=== PATIENT | female | born 1990 | race Caucasian/White ===

== ENCOUNTER 2023-07-22 09:48 | Emergency (ER) | payer MEDICAID, SELFPAY ==
[2023-07-22 09:55] VITALS: BP 128/72; PULSE 93; RESP 18; TEMP 36.6; O2SAT 98; BMI 18.3
[2023-07-22 11:10] LABS: Basophils # 0.1 10^3/uL (0.0-0.1); Basophils % 0.4 %; Eosinophils # 0.1 10^3/uL (0.0-0.8); Eosinophils % 0.4 %; Lymphocytes # 1.1 10^3/uL (0.8-4.8); Lymphocytes % 7.8 %; Mean Corpuscular HGB Conc 33.3 g/dL (30-55); Mean Corpuscular Hemoglobin 31.9 pg (27-33); Mean Corpuscular Volume 95.7 fl (85-98); Mean Platelet Volume 10.5 fL (7.4-10.4); Monocytes # 0.9 10^3/uL (0.2-0.9); Monocytes % 6.7 %; Neutrophils # 11.28 10^3/uL (1.8-7.7); Neutrophils % 84.3 %; Nucleated Red Blood Cells % 0 %; Platelet Count 193 10^3/cmm (157-399); Red Blood Count 4.39 10^6/uL (3.85-5.65); Red Cell Distribution Width 11.9 % (12.1-15.1); White Blood Count 13.38 10^3/uL (3.29-11.43)
[2023-07-22 11:21] VITALS: RESP 19; O2SAT 98
[2023-07-22] MEDS: ondansetron 2 mg/ML SDV 2 mL 4 MG IVP (11:21)
[2023-07-22] MEDS: morphine 4 mg/mL SDV 1 mL IVP ×2 (11:21→12:04)
--- NOTE | 2023-07-22 11:24 | PC.NURSE ---
NO BLOOD CULTURES DRAWN PRIOR TO ADMINISTRATION OF ANTIBIOTICS PER DR. IZAGUIRRE VERBAL ORDERS.
[2023-07-22] MEDS: vancomycin 1,000 MG in sodium chloride 0.9% 250 ML 250 MG IV (11:25)
[2023-07-22 11:31] VITALS: BP 127/78; PULSE 88; RESP 17; O2SAT 100
--- NOTE | 2023-07-22 11:42 | XRR_ITS ---
PROCEDURE INFORMATION: Exam: XR Left Hand Exam date and time: 07/22/2023 11:49 AM Age: 33 years old Clinical indication: Injury or trauma; Other: Blister on hand from raking; Injury details: Raking last week and got a blister on her left palm she states that she started having swelling redness to the palm started on bactrim but states she has had increased swelling is had some slight drainage from the wound and increased pain she denies any fevers. TECHNIQUE: Imaging protocol: Radiologic exam of the left hand. Views: 3 or more views. COMPARISON: No relevant prior studies available. FINDINGS: Bones/joints: Assessment somewhat limited due to patient positioning. Osseous structures are intact. No fracture or malalignment. Visualized joint surfaces are preserved. Soft tissues: Unremarkable. XR/XR hand LT min 3V* [id number] IMPRESSION: Negative exam. No acute bony abnormalities.
--- NOTE | 2023-07-22 11:46 | W.ED.EXTPRO ---
HPI - Extremity Problem General: Chief complaint: Extremity Problem,Nontraumatic Stated complaint: infection in hand Time Seen by Provider: 07/22/23 10:57 Source: patient Mode of arrival: ambulatory Limitations: no limitations History of Present Illness: 33-year-old female he states that she was raking last week and got a blister on her left palm she states that she started having swelling redness to the palm started on Bactrim but states she has had increased swelling is had some slight drainage from the wound and increased pain she denies any fevers. Associated symptoms: Deny chest pain, fever(s) or rash Review of Systems Const: Denies: fever(s) or chills ENMT: Denies: throat pain or dental pain Card: Denies: chest pain Resp: Denies: dyspnea GI: Denies: abdominal pain, nausea, vomiting or diarrhea Musc: Reports: extremity pain; Denies: neck pain or back pain Skin/Breast: Denies: rash Neuro: Denies: headache(s) Physical Exam Const: COMMON NORMALS: no acute distress, patient oriented x3 and healthy appearing HENMT: COMMON NORMALS: normocephalic and atraumatic HEAD & SCALP: normocephalic and atraumatic Neck/C-Spine: COMMON NORMALS: full ROM and supple Chest: COMMONS NORMALS: normal inspection of the chest Resp: COMMON NORMALS: normal respiratory effort Cardio: COMMON NORMALS: regular rate, regular rhythm and No murmurs present (Cardio) RATE: regular rate RHYTHM: regular rhythm GI: COMMON NORMALS: Normal to inspection, nondistended, normoactive bowel sounds present, Soft to palpation, non-tender and no masses PALPATION: Yes Soft to palpation Extremity: COMMON NORMALS: full ROM NARRATIVE EXTREMITY EXAM: Abscess noted to palm of left hand with some slight swelling she has full range of motion of her digits no flexor tendon tenderness Neuro: COMMON NORMALS: patient oriented x3, moves all extremities and no focal motor deficits Psych: COMMON NORMALS: mental status grossly normal, Normal thought process present and cooperative THOUGHT PROCESS: Normal thought process present Skin: COMMON NORMALS: no rashes or lesions noted and no wounds GENERAL SKIN EXAM: no rashes or lesions noted Procedures Abscess I/D Site: hand Side (if applicable): left Local Anesthetic: lidocaine 1% Amount of anesthesia used (mL): 4 Technique: incised with #11 blade Packing used?: none Course Vital Signs: Vital signs: Vital Signs Temperature 97.8 F 07/22/23 09:55 Pulse Rate 88 07/22/23 11:31 Respiratory Rate 19 H 07/22/23 12:17 Blood Pressure 127/78 07/22/23 11:31 Pulse Oximetry 100 07/22/23 11:31 Oxygen Delivery Me thod Room Air 07/22/23 11:31 MDM - Extremity (Nontraumatic) Medical Decision Making Patient presents here with an abscess to her left hand she has no signs of flexor tenosynovitis. I spoke to hand surgeon Dr. Leigh at [facility] did send her images of the hand who agrees no signs of acute flexor tenosynovitis patient CRP is mildly elevated did give her IV vancomycin did incise the abscess hand surgeon want to switch her to doxycycline we will place her on doxycycline she is to follow-up with a hand surgeon on return if worsening. Lab Data 07/22/23 11:00 Radiology Impressions Hand X-Ray 07/22/23 11:42 IMPRESSION: Negative exam. No acute bony abnormalities. Laboratory Results WBC 13.38 10^3/uL (3.29-11.43) H 07/22/23 11:00 RBC 4.39 10^6/uL (3.85-5.65) 07/22/23 11:00 Hgb 14.00 g/dL (11.27-16.99) 07/22/23 11:00 Hct 42.0 % (36-47) 07/22/23 11:00 MCV 95.7 fl (85-98) 07/22/23 11:00 MCH 31.9 pg (27-33) 07/22/23 11:00 MCHC 33.3 g/dL (30-55) 07/22/23 11:00 RDW 11.9 % (12.1-15.1) L 07/22/23 11:00 Plt Count 193 10^3/cmm (157-399) 07/22/23 11:00 MPV 10.5 fL (7.4-10.4) H 07/22/23 11:00 Neut % (Auto) 84.3 % 07/22/23 11:00 Lymph % (Auto) 7.8 % 07/22/23 11:00 Real % (Auto) 6.7 % 07/22/23 11:00 Eos % (Auto) 0.4 % 07/22/23 11:00 Baso % (Auto) 0.4 % 07/22/23 11:00 Neut # (Auto) 11.28 10^3/uL (1.8-7.7) H 07/22/23 11:00 Lymph # (Auto) 1.1 10^3/uL (0.8-4.8) 07/22/23 11:00 Real # (Auto) 0.9 10^3/uL (0.2-0.9) 07/22/23 11:00 Eos # (Auto) 0.1 10^3/uL (0.0-0.8) 07/22/23 11:00 Baso # (Auto) 0.1 10^3/uL (0.0-0.1) 07/22/23 11:00 Nucleated RBC % (auto) 0 % 07/22/23 11:00 Nucleated RBCs # 0.0 /100WBC 07/22/23 11:00 C-Reactive Protein 8.9 mg/L (0.0-4.9) H 07/22/23 11:00 Discharge Plan Discharge Patient Disposition: Home Clinical Impression: Abscess of hand Condition: Stable Prescriptions: New hydrocodone-acetaminophen 5-325 mg tablet 1 tab PO Q6H PRN (Reason: pain) Qty: 14 0RF doxycycline hyclate 100 mg tablet 100 mg PO BID 7 Days Qty: 14 0RF Discharge Orders: Discharge ED (Routine); Ordered 07/22/23 Ordered By: Dalton Cleary Referrals: Ginny Leigh [Other] Discharge Diet: Advance as tolerated Discharge Activity: Resume usual activity Patient Instructions: Abscess (ED), Opioid Safety Coding Level of Care Code ED [employer] Operator for Sharri Alexandre
[2023-07-22 12:04] VITALS: RESP 18
[2023-07-22 12:15] LABS: C Reactive Protein 8.9 mg/L (0.0-4.9)
[2023-07-22 12:17] VITALS: RESP 19
[2023-07-22] MEDS: HYDROmorphone 1 mg/mL INJ 1 mL IVP (12:17)
[2023-07-22] MEDS: HYDROcodone-acetaminophen 5-325 mg Tablet 1 TAB PO (12:48)
[2023-07-22 12:52] VITALS: BP 116/79; PULSE 98; O2SAT 98
== END 2023-07-22 12:54 | disposition home or self-care (01) ==
PROVIDERS: Emergency Provider Emergency Medicine
DX: L02.512 Cutaneous abscess of left hand (principal)
CPT/HCPCS: 10060; 36415; 73130; 85025; 86140; 87070; 87077; 87186; 96365; 96375; 96376; 99284; J1170; J2270; J2405; J3370; J7050